=== PATIENT | female | born 1980 | race Caucasian/White ===

== ENCOUNTER → 2019-03-30 | Outpatient (CLI) | payer BC ==
[2019-03-30 11:44] LABS: HCT 40.4 % (34.0-46.0); HGB 13.6 gm/dL (11.4-16.0); MCH 31.5 pg (25.0-35.0); MCHC 33.6 g/dL (31.0-37.0); MCV 93.6 fL (80.0-100.0); Mean Platelet Volume 8.5; Platelet Count 303 k/uL (150-450); RBC 4.32 m/uL (3.80-5.40); RDW 12.4 % (11.5-15.5); WBC 5.3 k/uL (3.8-10.6)
[2019-03-30 18:12] LABS: Shrimp IgE <0.10 kU/L; Soybean IgE <0.10 kU/L
[2019-03-30 18:13] LABS: Clam IgE <0.10 kU/L; Scallop IgE <0.10 kU/L; Walnut IgE (Food) <0.10 kU/L
[2019-03-30 18:14] LABS: Codfish IgE <0.10 kU/L; Egg White IgE 0.14 kU/L
[2019-03-30 18:15] LABS: ALT 15 U/L (8-44); AST 18 U/L (13-35); African American GFR (CKD) 94.7 (60.0-200.0); Albumin/Globulin Ratio 2.19 (1.60-3.17); Alkaline Phosphatase 25 U/L (41-126); BUN/Creat Ratio 15.56 Ratio (12.00-20.00); C Reactive Protein <0.4 mg/dL (0.0-0.8); Calcium 9.1 mg/dL (8.7-10.3); Carbon Dioxide 28.3 mmol/L (21.6-31.8); Chloride 104 mmol/L (96-109); Chol/HDL Ratio 3.22; Cholesterol 232 mg/dL (0-200); Globulin 2.1 g/dL (1.6-3.3); Glucose 94 mg/dL (70-110); LDL Cholesterol,Calculated 144.8 mg/dL (0.0-131.0); Magnesium 1.9 mg/dL (1.5-2.4); Non-African American GFR(CKD) 81.7 (60.0-200.0); Peanut IgE <0.10 kU/L; Potassium 4.2 mmol/L (3.5-5.5); Sodium 138 mmol/L (135-145); Total Bilirubin 0.5 mg/dL (0.3-1.2); Total Protein 6.7 g/dL (6.2-8.2)
== END | disposition home or self-care (01) ==
LOC: LABWHC1 11:16
PROVIDERS: ATTEND Family Medicine
DX: N94.6 Dysmenorrhea, unspecified (principal); R51 Headache; R53.82 Chronic fatigue, unspecified
CPT/HCPCS: 36415; 80053; 80061; 82785; 83735; 84443; 85027; 86003; 86038; 86140; 86665

== ENCOUNTER 2019-07-11 11:19 | Emergency (ER) | payer BC ==
[2019-07-11 11:33] VITALS: RESP 18
[2019-07-11] MEDS ORDERED: MORPHINE SULFATE 4 MG/ML SYRINGE IV STA (11:49)
[2019-07-11] MEDS ORDERED: FAMOTIDINE 20 MG/2 ML VIAL IV STA (11:49)
[2019-07-11] MEDS ORDERED: SODIUM CHLORIDE 0.9% 1,000 ML IV STA (11:49)
[2019-07-11] MEDS ORDERED: ONDANSETRON 4 MG/2 ML VIAL IVP STA (11:49)
[2019-07-11 12:37] LABS: Basophils % (A) 0 %; Eosinophils # (A) 0.1 k/uL (0-0.7); Eosinophils % (A) 1 %; HCT 43.7 % (34.0-46.0); HGB 14.3 gm/dL (11.4-16.0); Lymphocytes # (A) 1.2 k/uL (1.0-4.8); Lymphocytes % (A) 11 %; MCHC 32.7 g/dL (31.0-37.0); MCV 94.9 fL (80.0-100.0); Mean Platelet Volume 7.9; Monocytes # (A) 0.3 k/uL (0-1.0); Monocytes % (A) 2 %; Neutrophils # (A) 9.8 k/uL (1.3-7.7); Neutrophils % (A) 85 %; Platelet Count 269 k/uL (150-450); RDW 12.8 % (11.5-15.5); WBC 11.5 k/uL (3.8-10.6)
[2019-07-11 12:43] LABS: ALT 14 U/L (4-34); AST 24 U/L (14-36); African American GFR (CKD) >90 (>60 ml/min/1.73 sqM); Alkaline Phosphatase 29 U/L (38-126); Anion Gap 11 mmol/L; Blood Urea Nitrogen 16 mg/dL (7-17); Calcium 9.6 mg/dL (8.4-10.2); Carbon Dioxide 24 mmol/L (22-30); Chloride 104 mmol/L (98-107); Glucose 107 mg/dL (74-99); Non-African American GFR(CKD) >90 (>60 ml/min/1.73 sqM); Sodium 139 mmol/L (137-145); Total Bilirubin 0.7 mg/dL (0.2-1.3); Total Protein 8.2 g/dL (6.3-8.2)
[2019-07-11] MEDS ORDERED: KETOROLAC 30 MG/ML 1 ML VIAL IVP STA (12:46)
[2019-07-11 12:55] LABS: Appearance,Urine Clear (Clear); Bacteria,Urine Rare /hpf; Bilirubin,Urine Negative (Negative); Blood,Urine Small (Negative); Color,Urine Yellow; Glucose,Urine (UA) Negative (Negative); Ketones,Urine Negative (Negative); Leukocyte Esterase,Urine Negative (Negative); Mucus,Urine Occasional /hpf; Nitrite,Urine Negative (Negative); PH, Urine 7.5 (5.0-8.0); Protein,Urine Trace (Negative); RBC,Urine 1 /hpf (0-5); Specific Gravity,Urine 1.019 (1.001-1.035); Squamous Epithelial Cell,Urine 1 /hpf (0-4); Urobilinogen,Urine <2.0 mg/dL (<2.0); WBC,Urine <1 /hpf (0-5)
--- NOTE | 2019-07-11 13:12 | ED ---
Female Urogenital HPI - General Chief complaint: Urogenital Stated complaint: Pelvic pain, vomiting Time Seen by Provider: 07/11/19 11:44 Source: patient Mode of arrival: ambulatory Limitations: no limitations - History of Present Illness Initial comments: Patient is a 39-year-old female presenting to the emergency department with chief complaint of abdominal pain. Patient reports she woke up this morning with gradual onset of suprapubic and right lower quadrant pain. Reports nausea and multiple episodes of nonbilious, nonbloody vomiting. Also reports dysuria but denies any frequency or urgency. States she does have vaginal bleeding but she is currently on her period. Denies any foul vaginal smell or abnormal discharge. Denies dyspareunia or concerns for STDs. States she has tubal ligation. No history of previous abdominal surgeries. Denies taking any medication to alleviate the symptoms. It has any diarrhea chest pain or shortness of breath. Patient does have a history of dysmenorrhea, however it never causes her to have nausea and vomiting. - Related Data Previous Rx's Medication Instructions Recorded Famotidine [Pepcid] 20 mg PO BID #20 tablet 02/03/15 Clindamycin [Cleocin] 450 mg PO Q8HR #90 capsule 01/17/16 Allergies Allergy/AdvReac Type Severity Reaction Status Date / Time amoxicillin AdvReac Rash/Hives Verified 07/11/19 11:33 Review of Systems ROS Statement: Those systems with pertinent positive or pertinent negative responses have been documented in the HPI. ROS Other: All systems not noted in ROS Statement are negative. Past Medical History Past Medical History: No Reported History History of Any Multi-Drug Resistant Organisms: None Reported Past Surgical History: Uterine Ablation Past Psychological History: No Psychological Hx Reported Smoking Status: Never smoker Past Alcohol Use History: Daily Past Drug Use History: None Reported General Exam Limitations: no limitations General appearance: alert, in no apparent distress Head exam: Present: atraumatic, normocephalic, normal inspection Eye exam: Present: normal appearance, PERRL, EOMI Pupils: Present: normal accommodation ENT exam: Present: normal exam, normal oropharynx, mucous membranes dry Neck exam: Present: normal inspection, full ROM Respiratory exam: Present: normal lung sounds bilaterally Cardiovascular Exam: Present: regular rate, normal rhythm, normal heart sounds GI/Abdominal exam: Present: soft, tenderness (Positive McBurney point tenderness. Right lower quadrant tenderness. Suprapubic tenderness. Negative Rovsing, negative obturator, negative psoas). Absent: distended, guarding, rebound, rigid Extremities exam: Present: normal inspection, full ROM Back exam: Present: normal inspection, full ROM Neurological exam: Present: alert, oriented X3 Psychiatric exam: Present: normal affect, normal mood Skin exam: Present: warm, dry, intact, normal color Course Vital Signs 07/11/19 07/11/19 11:30 14:35 Temperature 98.8 F 98.0 F Pulse Rate 61 77 Respiratory 18 18 Rate Blood Pressure 115/75 136/78 O2 Sat by Pulse 100 98 Oximetry Medical Decision Making - Medical Decision Making Patient is a 39-year-old female presenting to the emergency department with a chief complaint of abdominal pain. Patient does report significant pain during the onset of her menstrual period, however it has never caused her this much pain nausea and vomiting. On physical Exam patient does have suprapubic and right lower quadrant tenderness. There are positive McBurney point tenderness but negative Rovsing are up-to-date. She does have dysuria but no other urinary symptoms. Patient is currently on her menstrual period so vaginal bleeding is expected. She denies any foul smell or abnormal discharge. No history of kidney stones or previous abdominal surgery. Patient has a tubal ligation. CBC and CMP are unremarkable. UA shows no signs of hematuria or urinary tract infection. CT of abdomen and pelvis obtained reveals a left ovarian cyst. Appendix cannot be visualized but no secondary signs are visible that would indicate appendicitis. This was a gradual onset of right lower quadrant pain. Low suspicion for ovarian torsion. Patient had no history of previous ovarian cyst. No free fluid detected in the cul-de-sac. Patient was given analgesia, antiemetics, fluids. Reevaluation patient reports improvement in symptoms. Return parameters were thoroughly discussed the patient is understanding and agreeable. Case discussed with physician. - Lab Data Result diagrams: 07/11/19 12:16 07/11/19 12:16 Lab Results 07/11/19 07/11/19 07/11/19 Range/Units 12:16 12:16 12:16 WBC 11.5 H (3.8-10.6) k/uL RBC 4.60 (3.80-5.40) m/uL Hgb 14.3 (11.4-16.0) gm/dL Hct 43.7 (34.0-46.0) % MCV 94.9 (80.0-100.0) fL MCH 31.0 (25.0-35.0) pg MCHC 32.7 (31.0-37.0) g/dL RDW 12.8 (11.5-15.5) % Plt Count 269 (150-450) k/uL Neutrophils % 85 % Lymphocytes % 11 % Monocytes % 2 % Eosinophils % 1 % Basophils % 0 % Neutrophils # 9.8 H (1.3-7.7) k/uL Lymphocytes # 1.2 (1.0-4.8) k/uL Monocytes # 0.3 (0-1.0) k/uL Eosinophils # 0.1 (0-0.7) k/uL Basophils # 0.0 (0-0.2) k/uL Sodium 139 (137-145) mmol/L Potassium 4.0 (3.5-5.1) mmol/L Chloride 104 (98-107) mmol/L Carbon Dioxide 24 (22-30) mmol/L Anion Gap 11 mmol/L BUN 16 (7-17) mg/dL Creatinine 0.77 (0.52-1.04) mg/dL Est GFR (CKD-EPI)AfAm >90 (>60 ml/min/1.73 sqM) Est GFR (CKD-EPI)NonAf >90 (>60 ml/min/1.73 sqM) Glucose 107 H (74-99) mg/dL Calcium 9.6 (8.4-10.2) mg/dL Total Bilirubin 0.7 (0.2-1.3) mg/dL AST 24 (14-36) U/L ALT 14 (4-34) U/L Alkaline Phosphatase 29 L (38-126) U/L Total Protein 8.2 (6.3-8.2) g/dL Albumin 5.0 (3.5-5.0) g/dL Lipase 36 (23-300) U/L Urine Color Yellow Urine Appearance Clear (Clear) Urine pH 7.5 (5.0-8.0) Ur Specific [place] 1.019 (1.001-1.035) Urine Protein Trace H (Negative) Urine Glucose (UA) Negative (Negative) Urine Ketones Negative (Negative) Urine Blood Small H (Negative) Urine Nitrite Negative (Negative) Urine Bilirubin Negative (Negative) Urine Urobilinogen <2.0 (<2.0) mg/dL Ur Leukocyte Esterase Negative (Negative) Urine RBC 1 (0-5) /hpf Urine WBC <1 (0-5) /hpf Ur Squamous Epith Cells 1 (0-4) /hpf Urine Bacteria Rare H (None) /hpf Urine Mucus Occasional H (None) /hpf Disposition Clinical Impression: Abdominal pain, Nausea & vomiting, Left ovarian cyst Disposition: HOME SELF-CARE Condition: Good Instructions (If sedation given, give patient instructions): Ovarian Cyst (ED) Additional Instructions: Follow-up with your load tester. Return to emergency department if symptoms worsen. Is patient prescribed a controlled substance at d/c from ED?: No Referrals: Melanie Headley MD [Primary Care Provider] - 1-2 days Time of Disposition: 14:14
--- NOTE | 2019-07-11 13:39 | CT ---
EXAMINATION TYPE: CT abdomen pelvis w con DATE OF EXAM: 07/11/2019 COMPARISON: NONE HISTORY: 39-year-old female RLQ pain TECHNIQUE: Contiguous axial scanning of the abdomen and pelvis following administration of 100 ml Iso catrina 300 IV contrast. Delayed images through the kidneys and coronal/sagittal reconstructions perform ed. CT DLP: 971.4 mGycm Automated exposure control for dose reduction was used. FINDINGS: LUNG BASES: No significant abnormality is appreciated. LIVER/GB: No significant abnormality is appreciated. PANCREAS: No significant abnormality is seen. SPLEEN: No significant abnormality is seen. ADRENALS: No significant abnormality is seen. KIDNEYS: No significant abnormality is seen. LYMPH NODES: No mesenteric or retroperitoneal lymphadenopathy. BOWEL: No dilated small bowel, free fluid, or free air. Mild stool within the right side of the colo n. Some mottled material within the distal ileum, probable fiber food bolus. No pericolic inflammator y change. Appendix not discretely visualized. No thickened, tubular, fluid-filled blind-ending struct ure identified in the right lower quadrant to suggest acute appendicitis. PELVIS: Uterus anteverted. Bladder is under distended. Both ovaries are visualized. A 1.7 cm cystic l esion with a thin rim of peripheral enhancement within the left ovary suggests a dominant follicle or functional cyst. No abnormal fluid collection in the pelvis or pelvic lymphadenopathy. BONES: No osseous destructive process. IMPRESSION: 1. THE APPENDIX COULD NOT BE VISUALIZED. NO SECONDARY FINDINGS OF ACUTE APPENDICITIS AT THIS TIME. 2. A 1.7 CM DOMINANT FOLLICLE OR FUNCTIONAL CYST IN LEFT OVARY.
[2019-07-11] MEDS ORDERED: ACET/COD 300 MG/30 MG STARTER PACK 6 TAB BTL PO STA (14:14)
[2019-07-11] MEDS ORDERED: ONDANSETRON 4 MG ODT STARTER PACK 2 TAB BTL PO STA (14:14)
[2019-07-11 14:36] VITALS: BP 136/78; PULSE 77; TEMP 98
== END 2019-07-11 14:36 | disposition home or self-care (01) ==
LOC: EC 11:19
DX: N83.202 Unspecified ovarian cyst, left side (principal); R11.2 Nausea with vomiting, unspecified; Z88.0 Allergy status to penicillin
CPT/HCPCS: 36415; 80053; 83690; 85025; 81001; 74177; 99284; 96374; 96375 ×3; 96361; J2270; J2405; J1885; S0119; Q9967

== ENCOUNTER → 2021-05-24 | Outpatient (CLI) | payer BC ==
--- NOTE | 2021-05-25 09:05 | US ---
EXAMINATION TYPE: US transvaginal DATE OF EXAM: 05/24/2021 COMPARISON: NONE CLINICAL HISTORY: 41-year-old female R10.2 PELVIC PAIN. Right pelvic pain. History of ablation and tu bal ligation TECHNIQUE: Transvaginal (TV) Date of LMP: 2 weeks ago FINDINGS: EXAM MEASUREMENTS: Uterus: 8.7 x 4.0 x 4.5 cm Endometrial Stripe: 0.9 cm Right Ovary: 2.8x 1.4 x 1.5 cm Left Ovary: 2.9 x 1.5 x 2.8 cm 1. Uterus: Anteverted. The myometrium is heterogeneous. 2. Endometrium: not clearly visualized due to heterogeneous myometrium. There are couple small cysti c areas measuring 4 mm and 3 mm centrally within the uterus at the level of the lower uterine segment near the cervix. 3. Right Ovary: cystic area = 2.2 x 1.8 x 2.3cm 4. Left Ovary: follicles noted 5. Bilateral Adnexa: appears wnl 6. Posterior cul-de-sac: wnl IMPRESSION: 1. Endometrial stripe not clearly visualized in keeping with history of prior ablation. 2. However, there are a couple small cystic areas along the lower uterine segment near the cervix kacey suring 4 mm and 3 mm. These may represent cervical nabothian cyst but are somewhat higher in position than would be expected. Given history of prior ablation, small foci of hematometra difficult to excl ude. Consider follow-up in 6-8 weeks to reassess. 3. A 2.3 cm dominant follicle or functional cyst of the right ovary.
== END | disposition home or self-care (01) ==
LOC: RADUSWWP 16:28
PROVIDERS: ATTEND Obstetrics & Gynecology
DX: R10.2 Pelvic and perineal pain (principal)
CPT/HCPCS: 76830

== ENCOUNTER → 2021-05-27 | Outpatient (CLI) | payer BC | END | disposition home or self-care (01) | LOC: LABWHC1 11:53 | PROVIDERS: ATTEND Family Medicine | DX: F41.8 Other specified anxiety disorders (principal) | CPT/HCPCS: 36415; 81291 ==

== ENCOUNTER → 2021-11-17 | Outpatient (CLI) | payer BC ==
--- NOTE | 2021-11-18 10:12 | MM ---
Reason for Exam: Screening (asymptomatic). Baseline mammogram. Patient History: Menarche at age 17. First Full-Term at age 27. Maternal grandmother had breast cancer at or over age 50. Risk Values: Arielle 5 year model risk: 0.6%. NCI Lifetime model risk: 10.2%. Prior Study Comparison: Patient's first Mammogram. Tissue Density: The breast tissue is heterogeneously dense. This may lower the sensitivity of mammography. Findings: Analyzed By CAD. There is no suspicious group of microcalcifications or suspicious mass in either breast. Overall Assessment: Negative, BI-RAD 1 Management: Screening Mammogram of both breasts in 1 year. A clinical breast exam by your physician is recommended on an annual basis and results should be correlated with mammographic findings. Electronically signed and approved by: Asa Jara D.O.
== END | disposition home or self-care (01) ==
LOC: RADMAMWWP 16:03
PROVIDERS: ATTEND Obstetrics & Gynecology
DX: Z12.31 Encounter for screening mammogram for malignant neoplasm of breast (principal)
CPT/HCPCS: 77063; 77067

== ENCOUNTER 2022-07-12 14:34 | Emergency (ER) | payer BC ==
--- NOTE | 2022-07-12 14:52 | ED ---
General Adult HPI - General Source: patient, RN notes reviewed Mode of arrival: ambulatory Limitations: no limitations <Martín Haji - Last Filed: 07/12/22 14:51> - History of Present Illness Onset/Timin -: days(s) Location: abdomen Quality: other (Cramping) Consistency: intermittent Improves with: none Worsens with: none Associated Symptoms: other Treatments Prior to Arrival: none <Reid Costello - Last Filed: 07/26/22 07:09> - General Stated complaint: black stool Time Seen by Provider: 07/12/22 14:51 - History of Present Illness Initial comments: 42-year-old female presents emergency Department with chief complaint of diarrhea, dark stools. Patient states that she felt like her heart was skipping a beat or squeezing PCP had normal EKG. Patient states she felt better but had some yellow diarrhea has not returned to black diarrhea stools. Denies any history of ulcers denies any blood thinners no aspirin. (Martín Haji) This patient is 42-year-old woman who presents with complaint that she has been having 3-4 days of some mild abdominal cramping and some diarrhea and there were some dark bowel movements as well. Patient is currently pain-free. She has not noted fever or chills. The patient has not had associated vomiting. Patient did have some intermittent palpitations but no chest pain, dyspnea, lightheadedness or syncope. (Reid Costello) - Related Data Home Medications Medication Instructions Recorded Confirmed Medroxyprogesterone Acetate 150 mg IM DIRECTED 05/25/21 05/25/21 [Depo-Provera] Previous Rx's Medication Instructions Recorded Atorvastatin [Lipitor] 40 mg PO HS #90 tablet 05/26/21 Ciprofloxacin HCl [Cipro] 500 mg PO Q12HR #14 tablet 07/12/22 Dicyclomine [Bentyl] 20 mg PO QID #15 tablet 07/12/22 Allergies Allergy/AdvReac Type Severity Reaction Status Date / Time sulfamethoxazole Allergy Rash/Hives Verified 07/12/22 14:55 [From Bactrim] trimethoprim [From Bactrim] Allergy Rash/Hives Verified 07/12/22 14:55 amoxicillin AdvReac Rash/Hives Verified 07/12/22 14:55 Review of Systems ROS Other: All systems not noted in ROS Statement are negative. <Martín Haji - Last Filed: 07/12/22 14:51> ROS Other: All systems not noted in ROS Statement are negative. Constitutional: Denies: fever, chills, weakness Respiratory: Denies: cough, dyspnea Cardiovascular: Reports: palpitations. Denies: chest pain, edema, syncope Gastrointestinal: Reports: as per HPI, abdominal pain, diarrhea. Denies: nausea, vomiting, constipation, hematemesis, hematochezia Genitourinary: Denies: dysuria, hematuria Musculoskeletal: Denies: back pain Skin: Denies: rash Neurological: Denies: headache, weakness Hematological/Lymphatic: Denies: easy bleeding <PravinReid - Last Filed: 07/26/22 07:09> ROS Statement: Those systems with pertinent positive or pertinent negative responses have been documented in the HPI. Past Medical History Past Medical History: No Reported History History of Any Multi-Drug Resistant Organisms: None Reported Past Surgical History: Uterine Ablation Past Psychological History: No Psychological Hx Reported Smoking Status: Never smoker Past Alcohol Use History: Daily Past Drug Use History: None Reported <Martín Haji - Last Filed: 07/12/22 14:51> General Exam <Martín Haji - Last Filed: 07/12/22 14:51> General appearance: alert, in no apparent distress Head exam: Present: atraumatic, normocephalic Eye exam: Present: normal appearance. Absent: scleral icterus, conjunctival injection Neck exam: Present: normal inspection Respiratory exam: Present: normal lung sounds bilaterally. Absent: respiratory distress, wheezes, rales, rhonchi, stridor Cardiovascular Exam: Present: regular rate, normal rhythm, normal heart sounds. Absent: systolic murmur, diastolic murmur, rubs, gallop GI/Abdominal exam: Present: soft. Absent: distended, tenderness, guarding, rebo und, rigid, mass Extremities exam: Present: normal inspection, normal capillary refill. Absent: pedal edema, calf tenderness Back exam: Present: normal inspection. Absent: CVA tenderness (R), CVA tenderness (L) Neurological exam: Present: alert Skin exam: Present: warm, dry, intact, normal color. Absent: rash <PravinReid - Last Filed: 07/26/22 07:09> - General Exam Comments Initial Comments: PVisual Physical Exam Vital signs reviewed General: Well-appearing, nontoxic, no acute distress. Head: Normocephalic, atraumatic Eyes: PERRLA, EOMI ENT: Airway patent Chest: Nonlabored breathing Skin: No visual rash, normal skin tone Neuro: Alert and oriented 3 Musculoskeletal: No gross abnormalities (Martín Haji) Course Vital Signs 07/12/22 07/12/22 14:51 23:54 Temperature 98.1 F Pulse Rate 79 65 Respiratory 18 16 Rate Blood Pressure 153/89 122/84 O2 Sat by Pulse 100 96 Oximetry EKG Findings - EKG Results: EKG: interpreted by ERMD, sinus rhythm (Rate 70 bpm), normal axis, normal QRS, normal ST/T, no acute changes - CO, Pacemaker, Normal: Normal tracing: normal tracing <Reid Costello - Last Filed: 07/26/22 07:09> Medical Decision Making - Lab Data Result diagrams: 07/12/22 15:02 07/12/22 15:02 <Reid Costello - Last Filed: 07/26/22 07:09> - Medical Decision Making This patient is 42-year-old woman presenting with acute diarrhea. She did describe what sounds like some associated gastrointestinal bleeding. The workup does reveal patient having normal blood counts. The physical exam is benign, with no suggestion of any surgical condition. We discussed appropriate further care and follow-up including possibility of needing endoscopy should there be a recurrence of her symptoms. Return parameters discussed. Was pt. sent in by a medical professional or institution (, PA, ANALYTICAL LAB TECHNICIAN, urgent care, hospital, or half-way...) When possible be specific @ -[No] Did you speak to anyone other than the patient for history (EMS, parent, family, police, friend...)? What history was obtained from this source @ -[No] Did you review nursing and triage notes (agree or disagree)? Why? @ -[I reviewed and agree with nursing and triage notes] Were old charts reviewed (outside hosp., previous admission, EMS record, old EKG, old radiological studies, urgent care reports/EKG's, half-way records)? Report findings @ -[No old charts were reviewed] Differential Diagnosis (chest pain, altered mental status, abdominal pain women, abdominal pain men, vaginal bleeding, weakness, fever, dyspnea, syncope, headache, dizziness, GI bleed, back pain, seizure, CVA, palpatations, mental health, musculoskeletal)? @ -[Differential Abdominal Pain Women: Appendicitis, Cholecystitis, diverticulosis, ischemic bowel, pancreatitis, hepatitis, UTI, gastroenteritis, incarcerated hernia, bowel obstruction, inflammatory bowel, hepatitis, peptic ulcer disease, this is not meant to be an all-inclusive list EKG interpreted by me (3pts min.). @ -[ X-rays interpreted by me (1pt min.). @ -[None done] CT interpreted by me (1pt min.). @ -[None done] U/S interpreted by me (1pt. min.). @ -[None done] What testing was considered but not performed or refused? (CT, X-rays, U/S, labs)? Why? @ -[None] What meds were considered but not given or refused? Why? @ -[None] Did you discuss the management of the patient with other professionals (professionals i.e. , PA, ANALYTICAL LAB TECHNICIAN, lab, RT, psych nurse, elementary school social worker, sample cutter, teacher, police liaison officer, patient case coordinator)? Give summary @ -[No] Was smoking cessation discussed for >3mins.? @ -[No] Was critical care preformed (if so, how long)? @ -[No] Were there social determinants of health that impacted care today? How? (Homelessness, low income, unemployed, alcoholism, drug addiction, transportation, low edu. Level, literacy, decrease access to med. care, long-term, rehab)? @ -[No] Was there de-escalation of care discussed even if they declined (Discuss DNR or withdrawal of care, Hospice)? DNR status @ -[No] What co-morbidities impacted this encounter? (DM, HTN, Smoking, COPD, CAD, Cancer, CVA, ARF, Chemo, Hep., AIDS, mental health diagnosis, sleep apnea, morbid obesity)? @ -[None] Was patient admitted / discharged? Hospital course, mention meds given and rout e, prescriptions, significant lab abnormalities, going to OR and other pertinent info. @ -[Discharged Undiagnosed new problem with uncertain prognosis? @ -[No] Drug Therapy requiring intensive monitoring for toxicity (Heparin, Nitro, Insulin, Cardizem)? @ -[No] Were any procedures done? @ -[No] Diagnosis/symptom? @ -[Acute diarrhea Acute gastrointestinal bleeding by history, appears resolved Acute, or Chronic, or Acute on Chronic? @ -[default] Uncomplicated (without systemic symptoms) or Complicated (systemic symptoms)? @ -[default] Side effects of treatment? @ -[No] Exacerbation, Progression, or Severe Exacerbation? @ -[No] Poses a threat to life or bodily function? How? (Chest pain, USA, CO, pneumonia, PE, COPD, DKA, ARF, appy, cholecystitis, CVA, Diverticulitis, Homicidal, Suicidal, threat to staff... and all critical care pts) @ -[No] (Reid Costello) - Lab Data Lab Results 07/12/22 07/12/22 07/12/22 Range/Units 15:02 15:02 15:02 WBC 6.6 (3.8-10.6) k/uL RBC 4.28 (3.80-5.40) m/uL Hgb 13.9 (11.4-16.0) gm/dL Hct 39.7 (34.0-46.0) % MCV 93.0 (80.0-100.0) fL MCH 32.5 (25.0-35.0) pg MCHC 35.0 (31.0-37.0) g/dL RDW 12.2 (11.5-15.5) % Plt Count 234 (150-450) k/uL MPV 8.4 Neutrophils % 71 % Lymphocytes % 21 % Monocytes % 5 % Eosinophils % 1 % Basophils % 1 % Neutrophils # 4.7 (1.3-7.7) k/uL Lymphocytes # 1.4 (1.0-4.8) k/uL Monocytes # 0.3 (0-1.0) k/uL Eosinophils # 0.1 (0-0.7) k/uL Basophils # 0.1 (0-0.2) k/uL PT 10.1 (9.0-12.0) sec INR 0.9 (<1.2) APTT 24.8 (22.0-30.0) sec Sodium 136 L (137-145) mmol/L Potassium 3.9 (3.5-5.1) mmol/L Chloride 100 (98-107) mmol/L Carbon Dioxide 26 (22-30) mmol/L Anion Gap 10 mmol/L BUN 13 (7-17) mg/dL Creatinine 0.86 (0.52-1.04) mg/dL Est GFR (CKD-EPI)AfAm >90 (>60 ml/min/1.73 sqM) Est GFR (CKD-EPI)NonAf 85 (>60 ml/min/1.73 sqM) Glucose 98 (74-99) mg/dL Plasma Lactic Acid Kyle (0.7-2.0) mmol/L Calcium 9.2 (8.4-10.2) mg/dL Total Bilirubin 0.5 (0.2-1.3) mg/dL AST 20 (14-36) U/L ALT 16 (4-34) U/L Alkaline Phosphatase 32 L (38-126) U/L Total Protein 7.2 (6.3-8.2) g/dL Albumin 4.4 (3.5-5.0) g/dL Lipase 94 (23-300) U/L Stool Occult Blood (Negative) 07/12/22 07/12/22 Range/Units 15:02 21:30 WBC (3.8-10.6) k/uL RBC (3.80-5.40) m/uL Hgb (11.4-16.0) gm/dL Hct (34.0-46.0) % MCV (80.0-100.0) fL MCH (25.0-35.0) pg MCHC (31.0-37.0) g/dL RDW (11.5-15.5) % Plt Count (150-450) k/uL MPV Neutrophils % % Lymphocytes % % Monocytes % % Eosinophils % % Basophils % % Neutrophils # (1.3-7.7) k/uL Lymphocytes # (1.0-4.8) k/uL Monocytes # (0-1.0) k/uL Eosinophils # (0-0.7) k/uL Basophils # (0-0.2) k/uL PT (9.0-12.0) sec INR (<1.2) APTT (22.0-30.0) sec Sodium (137-145) mmol/L Potassium (3.5-5.1) mmol/L Chloride (98-107) mmol/L Carbon Dioxide (22-30) mmol/L Anion Gap mmol/L BUN (7-17) mg/dL Creatinine (0.52-1.04) mg/dL Est GFR (CKD-EPI)AfAm (>60 ml/min/1.73 sqM) Est GFR (CKD-EPI)NonAf (>60 ml/min/1.73 sqM) Glucose (74-99) mg/dL Plasma Lactic Acid Kyle 0.9 (0.7-2.0) mmol/L Calcium (8.4-10.2) mg/dL Total Bilirubin (0.2-1.3) mg/dL AST (14-36) U/L ALT (4-34) U/L Alkaline Phosphatase (38-126) U/L Total Protein (6.3-8.2) g/dL Albumin (3.5-5.0) g/dL Lipase (23-300) U/L Stool Occult Blood Negative (Negative) Disposition <Martín Haji - Last Filed: 07/12/22 14:51> Is patient prescribed a controlled substance at d/c from ED?: No <Reid Costello - Last Filed: 07/26/22 07:09> Clinical Impression: GI bleeding Disposition: HOME SELF-CARE Condition: Good Instructions (If sedation given, give patient instructions): Gastrointestinal Bleeding (ED) Prescriptions: Dicyclomine [Bentyl] 20 mg PO QID #15 tablet Ciprofloxacin HCl [Cipro] 500 mg PO Q12HR #14 tablet Referrals: Melanie Headley MD [Primary Care Provider] - 1-2 days
[2022-07-12 14:55] VITALS: TEMP 98.1
[2022-07-12 15:31] LABS: Basophils # (A) 0.1 k/uL (0-0.2); Basophils % (A) 1 %; Eosinophils # (A) 0.1 k/uL (0-0.7); Eosinophils % (A) 1 %; HCT 39.7 % (34.0-46.0); HGB 13.9 gm/dL (11.4-16.0); Lymphocytes # (A) 1.4 k/uL (1.0-4.8); Lymphocytes % (A) 21 %; MCH 32.5 pg (25.0-35.0); Mean Platelet Volume 8.4; Monocytes # (A) 0.3 k/uL (0-1.0); Monocytes % (A) 5 %; Neutrophils # (A) 4.7 k/uL (1.3-7.7); Neutrophils % (A) 71 %; Platelet Count 234 k/uL (150-450); RBC 4.28 m/uL (3.80-5.40); RDW 12.2 % (11.5-15.5); WBC 6.6 k/uL (3.8-10.6)
[2022-07-12 15:44] LABS: ALT 16 U/L (4-34); AST 20 U/L (14-36); African American GFR (CKD) >90 (>60 ml/min/1.73 sqM); Albumin 4.4 g/dL (3.5-5.0); Alkaline Phosphatase 32 U/L (38-126); Anion Gap 10 mmol/L; Blood Urea Nitrogen 13 mg/dL (7-17); Calcium 9.2 mg/dL (8.4-10.2); Carbon Dioxide 26 mmol/L (22-30); Chloride 100 mmol/L (98-107); Glucose 98 mg/dL (74-99); Lipase 94 U/L (23-300); Non-African American GFR(CKD) 85 (>60 ml/min/1.73 sqM); Potassium 3.9 mmol/L (3.5-5.1); Sodium 136 mmol/L (137-145); Total Bilirubin 0.5 mg/dL (0.2-1.3); Total Protein 7.2 g/dL (6.3-8.2)
[2022-07-12 16:03] LABS: INR 0.9 (<1.2); Partial Thromboplastin Time 24.8 sec (22.0-30.0); Prothrombin Time 10.1 sec (9.0-12.0)
[2022-07-12] MEDS ORDERED: FAMOTIDINE 20 MG/2 ML VIAL IV STA (20:50)
[2022-07-12] MEDS ORDERED: DICYCLOMINE 20 MG TAB PO STA (21:17)
[2022-07-12] MEDS ORDERED: PANTOPRAZOLE 40 MG/10 ML VIAL IVP STA (21:17)
[2022-07-12] MEDS ORDERED: DEXTROSE 5%-0.45% NACL 1,000 ML IV ONE (22:13)
[2022-07-13 00:09] VITALS: BP 122/84; PULSE 65; RESP 16
== END 2022-07-12 23:54 | disposition home or self-care (01) ==
LOC: EC 14:34
DX: K92.2 Gastrointestinal hemorrhage, unspecified (principal); Z88.0 Allergy status to penicillin; Z88.1 Allergy status to other antibiotic agents; Z88.2 Allergy status to sulfonamides
CPT/HCPCS: 36415; 93005; 80053; 83605; 83690; 85025; 85610; 85730; 82272; 99284; 96374; 96375; C9113